=== PATIENT | female | born 1955 | race Hispanic/Latino ===

== ENCOUNTER 2017-01-07 14:55 | Emergency (ER) | payer MEDICAID ==
[2017-01-07 15:02] VITALS: TEMP 97.6
[2017-01-07] MEDS ORDERED: Albuterol-Ipratrop 3 mg / 0.5 (3 ml) UD INH STA ×3 (15:27→15:29)
[2017-01-07] MEDS ORDERED: Albuterol-Ipratrop 3 mg / 0.5 (3 ml) UD ONE (15:28)
--- NOTE | 2017-01-07 15:31 | ED PDOC ---
HPI: SOB/CHF/COPD Time Seen by Provider: 01/07/17 15:29 Chief Complaint (Nursing): Shortness Of Breath Chief Complaint (Provider): SOB History Per: Patient (61 Y/O FEMALE H/O COPD HERE WITH COMPLAINT OF SOB TODAY NOT RESOLVING DESPITE ATTEMPTED USE OF NEBULIZER. DENIES ANY COUGH/FEVERS/ CHILLS/URI.) Past Medical History Reviewed: Historical Data, Nursing Documentation, Vital Signs Vital Signs: Last Vital Signs Temp 97.6 F 01/07/17 15:02 Pulse 75 01/07/17 16:28 Resp 20 01/07/17 16:25 BP 151/74 H 01/07/17 16:25 Pulse Ox 99 01/07/17 17:16 - Medical History PMH: Anemia (iron deficiency), Anxiety, Arthritis, Asthma, Cardia Arrhythmia, COPD, Migraine, Osteoporosis, Rheumatoid Arthritis Denies: HTN, Chronic Kidney Disease - Surgical History Surgical History: - Family History Family History: States: No Known Family Hx - Home Medications Home Medications: Ambulatory Orders Medication Instructions Recorded Albuterol Sulfate [Albuterol 2 puff IH BID PRN 11/12/14 Sulfate Hfa] Alprazolam [Xanax] 0.5 mg PO Q12 11/12/14 Budesonide/Formoterol Fumarate 2 puff IH BID PRN 11/12/14 [Symbicort 160-4.5 Mcg Inhaler] Oxycodone Hydrochloride [Oxycodone] 15 mg PO BID PRN 11/12/14 Promethazine DM [Phenergan DM 10 ml PO QID 11/12/14 Syrup] Zolpidem Tartrate [Ambien] 5 mg PO HS PRN 11/12/14 predniSONE [predniSONE Tab] 5 mg PO DAILY #0 tab 11/14/14 Sulfamethoxazole/Trimethopri 1 tab PO BID #28 tab 06/25/15 [Bactrim Ds 800 mg-160 mg] Tobramycin 0.3% [Tobrex 0.3% Ophth 0.3 drop OU Q4H #1 bottle 11/14/15 Oint] Prednisone [Deltasone] 3 tab PO DAILY #12 tablet 01/07/17 - Allergies Allergies/Adverse Reactions: Allergies Allergy/AdvReac Type Severity Reaction Status Date / Time No Known Allergies Allergy Verified 11/14/15 08:34 Review of Systems ROS Statement: Except As Marked, All Systems Reviewed And Found Negative Respiratory: Positive for: Shortness of Breath Physical Exam - Reviewed Nursing Documentation Reviewed: Yes Vital Signs Reviewed: Yes - Physical Exam Appears: Positive for: Well, Non-toxic, No Acute Distress Head Exam: Positive for: ATRAUMATIC, NORMAL INSPECTION, NORMOCEPHALIC Skin: Positive for: Normal Color, Warm, DRY Eye Exam: Positive for: EOMI, Normal appearance, PERRL ENT: Positive for: Normal ENT Inspection Neck: Positive for: Normal, Painless ROM Cardiovascular/Chest: Positive for: Regular Rate, Rhythm Respiratory: Positive for: Normal Breath Sounds, Wheezing Gastrointestinal/Abdominal: Positive for: Normal Exam, Bowel Sounds, Soft Back: Positive for: Normal Inspection Extremity: Positive for: Normal ROM Neurologic/Psych: Positive for: Alert, Oriented - Laboratory Results Result Diagrams: 01/07/17 15:31 01/07/17 16:15 - ECG O2 Sat by Pulse Oximetry: 99 - Progress ED Course And Treament: DUONEB X 3 SOLUMEDROL 125 MG IV X 1 DOSE CXR: SAFETY PIN (EXTERNAL NOTED ON BLOUSE) OTHERWISE NO OBVIOUS PNEUMONIA/ETC. RE-EVALUATED AT 17:15PM. PATIENT APPEARS MUCH IMPROVED. O2 SAT AT 99% ON LUNG EXAM. D/W DR. MARTINS Disposition - Clinical Impression Clinical Impression: Asthma exacerbation - Patient ED Disposition Is Patient to be Admitted: No - Disposition Disposition: Routine/Home Disposition Time: 17:16 Condition: FAIR Prescriptions: Prednisone [Deltasone] 3 tab PO DAILY #12 tablet Instructions: Asthma (ED) Print Language: KOREAN
--- NOTE | 2017-01-07 16:10 | RAD ---
HISTORY: Shortness of breath COMPARISON: 11/12/2014. FINDINGS: LUNGS: The lungs are clear. PLEURA: No significant pleural effusion identified, no pneumothorax apparent. CARDIOVASCULAR: The heart is normal in size. OSSEOUS STRUCTURES: No significant abnormalities. VISUALIZED UPPER ABDOMEN: Normal. OTHER FINDINGS: None. IMPRESSION: No active pulmonary disease.
[2017-01-07 16:37] LABS: BASO # 0.1 K/uL (0.0-0.2); BASO % 0.6 % (0.0-2.0); EOS # 0.2 K/uL (0.0-0.7); EOS % 2.5 % (0.0-4.0); HEMOGLOBIN 13.1 g/dL (12.0-16.0); LYMPH % 33.4 % (20.0-40.0); MEAN CELL VOLUME 89.9 fl (81.0-99.0); MEAN CORPUSCULAR HGB CONC 33.3 g/dL (33.0-37.0); MEAN PLATELET VOLUME 10.3 fl (7.2-11.7); MONO # 0.6 K/uL (0.0-0.8); MONO % 6.2 % (0.0-10.0); NEUT # 5.2 K/uL (1.8-7.0); NEUT % 57.3 % (50.0-75.0); RBC 4.39 Mil/uL (3.80-5.20); RED CELL DISTRIBUTION WIDTH 13.7 % (11.5-14.5); WHITE BLOOD COUNT 9.1 K/uL (4.8-10.8)
[2017-01-07 16:50] LABS: BLOOD UREA NITROGEN 11 mg/dl (7-17); CALCIUM 9.5 mg/dL (8.4-10.2); GFR AFRICAN-AMERICAN > 60; GFR NON-AFRICAN AMERICAN > 60
[2017-01-07 17:27] VITALS: BP 168/81; PULSE 85; RESP 18; O2SAT 96
--- NOTE | 2017-01-08 14:53 | CARD ---
APPROVED REPORT EKG Measurement Heart [id number] ID [id number] <Conclusion> Normal sinus rhythm with sinus arrhythmia Normal ECG
== END 2017-01-07 17:26 | disposition home or self-care (01) ==
LOC: H.ER 14:55
DX: J45.901 Unspecified asthma with (acute) exacerbation (principal)

== ENCOUNTER 2017-09-20 03:01 | Emergency (ER) | payer MEDICAID ==
[2017-09-20 03:34] VITALS: BMI 35.2
[2017-09-20] MEDS ORDERED: Naproxen 500 MG TAB PO STA (03:34)
[2017-09-20 03:42] VITALS: BP 144/77; PULSE 92; RESP 16; TEMP 98.5; O2SAT 98
[2017-09-20] MEDS ORDERED: Naproxen 500 MG TAB PO ONE (04:00)
--- NOTE | 2017-09-20 04:05 | ED PDOC ---
Lower Extremity Pain/Injury Time Seen by Provider: 09/20/17 03:06 Chief Complaint (Nursing): Lower Extremity Problem/Injury Chief Complaint (Provider): LEft knee pain after fall History Per: Patient History/Exam Limitations: no limitations Onset/Duration Of Symptoms: Days Current Symptoms Are (Timing): Still Present Additional Complaint(s): PT states she tripped and fell which results in her twisting her left knee. Localized pain, lateral knee. No swelling. No medication for pain at home. Past Medical History Reviewed: Historical Data, Nursing Documentation, Vital Signs Vital Signs: Last Vital Signs Temp 98.5 F 09/20/17 03:37 Pulse 92 H 09/20/17 03:37 Resp 16 09/20/17 03:37 BP 144/77 09/20/17 03:37 Pulse Ox 98 09/20/17 03:37 - Medical History PMH: Anemia (iron deficiency), Anxiety, Arthritis, Asthma, Cardia Arrhythmia, COPD, Migraine, Osteoporosis, Rheumatoid Arthritis Denies: HTN, Chronic Kidney Disease - Surgical History Surgical History: - Family History Family History: States: No Known Family Hx - Living Arrangements Living Arrangements: With Family - Social History Current smoker - smoking cessation education provided: No - Home Medications Home Medications: Ambulatory Orders Medication Instructions Recorded Albuterol Sulfate [Albuterol 2 puff IH BID PRN 11/12/14 Sulfate Hfa] Alprazolam [Xanax] 0.5 mg PO Q12 11/12/14 Budesonide/Formoterol Fumarate 2 puff IH BID PRN 11/12/14 [Symbicort 160-4.5 Mcg Inhaler] Oxycodone Hydrochloride [Oxycodone] 15 mg PO BID PRN 11/12/14 Promethazine DM [Phenergan DM 10 ml PO QID 11/12/14 Syrup] Zolpidem Tartrate [Ambien] 5 mg PO HS PRN 11/12/14 predniSONE [predniSONE Tab] 5 mg PO DAILY #0 tab 11/14/14 Sulfamethoxazole/Trimethopri 1 tab PO BID #28 tab 06/25/15 [Bactrim Ds 800 mg-160 mg] Tobramycin 0.3% [Tobrex 0.3% Ophth 0.3 drop OU Q4H #1 bottle 11/14/15 Oint] Prednisone [Deltasone] 3 tab PO DAILY #12 tablet 01/07/17 - Allergies Allergies/Adverse Reactions: Allergies Allergy/AdvReac Type Severity Reaction Status Date / Time No Known Allergies Allergy Verified 09/20/17 03:37 Review of Systems ROS Statement: Except As Marked, All Systems Reviewed And Found Negative Constitutional: Negative for: Fever, Chills Musculoskeletal: Positive for: Leg Pain Physical Exam - Reviewed Nursing Documentation Reviewed: Yes Vital Signs Reviewed: Yes - Physical Exam Appears: Positive for: Well, Non-toxic, No Acute Distress Head Exam: Positive for: ATRAUMATIC, NORMAL INSPECTION, NORMOCEPHALIC Skin: Positive for: Normal Color, Warm, DRY Eye Exam: Positive for: Normal appearance ENT: Positive for: Normal ENT Inspection Neck: Positive for: Normal, Painless ROM Respiratory: Negative for: Accessory Muscle Use Back: Positive for: Normal Inspection Extremity: Positive for: Normal ROM, Swelling (minimal ). Negative for: Tenderness, Deformity Neurologic/Psych: Positive for: Alert, Oriented - ECG O2 Sat by Pulse Oximetry: 98 Pulse Ox Interpretation: Normal Medical Decision Making Medical Decision Making: No acute findings on x-ray of the knee . Disposition - Clinical Impression Clinical Impression: Knee pain - Disposition Referrals: Segun Santos MD [Primary Care Provider] - Disposition: Routine/Home Disposition Time: 04:11 Condition: GOOD Instructions: Knee Pain (DC) Forms: [employer] (Ugandan)
--- NOTE | 2017-09-20 08:34 | RAD ---
PROCEDURE: Left Knee Radiographs. HISTORY: Pain. COMPARISON: None. FINDINGS: BONES: No acute fracture or destructive bony lesion identified. JOINTS: No subluxation or dislocation identified. Limited joint space narrowing seen the medial femorotibial compartment compatible degenerative joint disease. There is ossification insertion of the quadriceps tendon at the upper patella. JOINT EFFUSION: Trace suprapatellar bursa effusion noted. OTHER FINDINGS: None. IMPRESSION: Limited degenerative changes. No acute fracture or dislocation identified. Trace suprasellar bursa effusion evident.
== END 2017-09-20 05:05 | disposition home or self-care (01) ==
LOC: H.ER 03:01
DX: M25.562 Pain in left knee (principal); F41.9 Anxiety disorder, unspecified; J44.9 Chronic obstructive pulmonary disease, unspecified; M06.9 Rheumatoid arthritis, unspecified; M81.0 Age-related osteoporosis without current pathological fracture

== ENCOUNTER 2018-01-10 16:54 | Inpatient (IN) | payer MEDICAID ==
[2018-01-10 16:54] VITALS: BMI 35.2
[2018-01-10] MEDS ORDERED: Albuterol-Ipratrop 3 mg / 0.5 (3 ml) UD INH STA ×2 (18:14→18:53)
--- NOTE | 2018-01-10 18:31 | ED PDOC ---
History of Present Illness History of Present Illness: 62yo female, sent to ER by Dr. Santos for evaluation as she has been coughing for the apst 6 days. Patient states she feels an itch in her throat that makes her want to cough. Patient was placed on a course of zithromax (started 01/06), cetirizine and promethazine DM without relief of symptoms. Otherwise, patient denies any fever, chills, sputum, chest pain, or shortness of breath. HPI: Influenza Time Seen by Provider: 01/10/18 18:08 Chief Complaint: Cough, Cold, Congestion Chief Complaint (Provider): Cough History Per: Patient Exam Limitations: no limitations Have you had recent travel within the past 21 days to any of: No Past Medical History Reviewed: Historical Data, Nursing Documentation, Vital Signs Vital Signs: Last Vital Signs Temp 98.4 F 01/10/18 17:12 Pulse 86 01/10/18 17:12 Resp 18 01/10/18 17:12 BP 156/76 H 01/10/18 17:12 Pulse Ox 100 01/10/18 17:12 - Medical History PMH: Anemia (iron deficiency), Anxiety, Arthritis, Asthma, Cardia Arrhythmia, COPD, Migraine, Osteoporosis, Rheumatoid Arthritis Denies: HTN, Chronic Kidney Disease - Surgical History Surgical History: - Family History Family History: States: No Known Family Hx - Living Arrangements Living Arrangements: With Family - Home Medications Home Medications: Ambulatory Orders Medication Instructions Recorded Albuterol Sulfate [Albuterol 2 puff IH BID PRN 11/12/14 Sulfate Hfa] Promethazine DM [Phenergan DM 10 ml PO QID 11/12/14 Syrup] Azithromycin [Zithromax] 500 mg PO DAILY 01/10/18 Levocetirizine Dihydrochloride 5 mg PO DAILY 01/10/18 [Xyzal] - Allergies Allergies/Adverse Reactions: Allergies Allergy/AdvReac Type Severity Reaction Status Date / Time No Known Allergies Allergy Verified 01/10/18 17:12 Review of Systems ROS Statement: Except As Marked, All Systems Reviewed And Found Negative Constitutional: Negative for: Fever, Chills Cardiovascular: Negative for: Chest Pain Respiratory: Positive for: Cough. Negative for: Shortness of Breath, Sputum Gastrointestinal: Negative for: Nausea, Vomiting, Diarrhea Physical Exam - Reviewed Nursing Documentation Reviewed: Yes Vital Signs Reviewed: Yes - Physical Exam Appears: Positive for: Non-toxic, No Acute Distress Head Exam: Positive for: ATRAUMATIC, NORMAL INSPECTION, NORMOCEPHALIC Skin: Positive for: Normal Color, Warm, Dry Eye Exam: Positive for: Normal appearance ENT: Positive for: Pharynx Is (clear), Other (uvula midline). Negative for: Pharyngeal Erythema, Tonsillar Exudate, Tonsillar Swelling Neck: Positive for: Normal, Supple, Trachea Midline Cardiovascular/Chest: Positive for: Regular Rate, Rhythm Respiratory: Positive for: Wheezing (bilateral expiratory wheeze). Negative for : Rales, Rhonchi, Respiratory Distress Gastrointestinal/Abdominal: Positive for: Normal Exam, Soft. Negative for: Tenderness Back: Positive for: Normal Inspection Extremity: Positive for: Normal ROM. Negative for: Pedal Edema Neurologic/Psych: Positive for: Alert, Oriented Medical Decision Making Medical Decision Making: Impression: Cough, asthma exacerbation Plan: -- Chest x-ray -- Duoneb 3ml INH -- Solumedrol 125mg IVP -- Labs -- EKG Accession No. : [id number] Patient Name / ID : CAMPOS CORONA / [id number] Exam Date : 01/10/2018 18:22:38 ( Approved ) Study Comment : Sex / Age : F / 62Y Creator : shaneka banda Dictator : Mack Rosado MD Patient Assessment Coordinator : Material Attendant : Mack Rosado MD Approver2 : Report Date : 01/10/2018 18:42:11 My Comment : HISTORY: Cough X 6 days COMPARISON: Chest radiograph dated 01/07/2017 TECHNIQUE: Chest PA and lateral FINDINGS: LUNGS: Left basilar atelectasis versus infiltrate. PLEURA: No significant pleural effusion identified. No pneumothorax apparent. CARDIOVASCULAR: Atherosclerotic aortic calcifications. Cardiomediastinal silhouette within normal limits. OSSEOUS STRUCTURES: Unchanged. VISUALIZED UPPER ABDOMEN: Normal. OTHER FINDINGS: None. IMPRESSION: Left basilar atelectasis versus infiltrate. Scribe Attestation: Documented by Anais Tyler, acting as a scribe for Brittanie Moreno MD. Provider Scribe Attestation: All medical record entries made by the Scribe were at my direction and personally dictated by me. I have reviewed the chart and agree that the record accurately reflects my personal performance of the history, physical exam, medical decision making, and the department course for this patient. I have also personally directed, reviewed, and agree with the discharge instructions and disposition. - Laboratory Results Result Diagrams: 01/12/18 06:25 01/12/18 06:25 - ECG O2 Sat by Pulse Oximetry: 100 Disposition - Clinical Impression Clinical Impression: Pneumonia, Asthma exacerbation - Patient ED Disposition Is Patient to be Admitted: Yes - Disposition Disposition Time: 19:08 Condition: STABLE - Pt Status Changed To: Hospital Disposition Of: Inpatient - Admit Certification Admit to Inpatient:: After my assessment, the patient will require hospitalization for at least two midnights. This is because of the severity of symptoms shown, intensity of services needed, and/or the medical risk in this patient being treated as an outpatient. - POA Present On Arrival: None
[2018-01-10] MEDS ORDERED: Albuterol-Ipratrop 3 mg / 0.5 (3 ml) UD ONE ×2 (18:43→20:33)
--- NOTE | 2018-01-10 18:52 | RAD ---
HISTORY: Cough X 6 days COMPARISON: Chest radiograph dated 01/07/2017 TECHNIQUE: Chest PA and lateral FINDINGS: LUNGS: Left basilar atelectasis versus infiltrate. PLEURA: No significant pleural effusion identified. No pneumothorax apparent. CARDIOVASCULAR: Atherosclerotic aortic calcifications. Cardiomediastinal silhouette within normal limits. OSSEOUS STRUCTURES: Unchanged. VISUALIZED UPPER ABDOMEN: Normal. OTHER FINDINGS: None. IMPRESSION: Left basilar atelectasis versus infiltrate.
[2018-01-10] MEDS ORDERED: levoFLOXacin 750 mg in D5W 150 ML BAG IVPB STA (18:53)
[2018-01-10 18:55] LABS: BASO % 0.5 % (0.0-2.0); EOS # 0.2 K/uL (0.0-0.7); EOS % 2.3 % (0.0-4.0); HEMOGLOBIN 13.5 g/dL (12.0-16.0); LYMPH # 3.5 K/uL (1.0-4.3); LYMPH % 32.6 % (20.0-40.0); MEAN CELL VOLUME 90.5 fl (81.0-99.0); MEAN CORPUSCULAR HEMOGLOBIN 30.2 pg (27.0-31.0); MEAN CORPUSCULAR HGB CONC 33.3 g/dL (33.0-37.0); MEAN PLATELET VOLUME 9.3 fl (7.2-11.7); MONO # 0.5 K/uL (0.0-0.8); MONO % 4.9 % (0.0-10.0); NEUT # 6.3 K/uL (1.8-7.0); NEUT % 59.7 % (50.0-75.0); RBC 4.48 Mil/uL (3.80-5.20); RED CELL DISTRIBUTION WIDTH 13.3 % (11.5-14.5); WHITE BLOOD COUNT 10.6 K/uL (4.8-10.8)
[2018-01-10 19:04] LABS: ALB/GLOB RATIO 1.3 (1.0-2.1); ALBUMIN 4.2 g/dL (3.5-5.0); ALT/SGPT 46 U/L (9-52); AST/SGOT 30 U/L (14-36); BLOOD UREA NITROGEN 11 mg/dl (7-17); CALCIUM 9.8 mg/dL (8.4-10.2); GFR NON-AFRICAN AMERICAN > 60
[2018-01-10] MEDS ORDERED: levoFLOXacin 750 mg in D5W 750 MG/150 ML BAG IVPB ONE (20:33)
[2018-01-11] MEDS ORDERED: Promethazine/Cod 6.25mg-10mg/5ml Syr UD PO PRN (00:10)
[2018-01-11] MEDS ORDERED: methylPREDNISolone 40 MG in Sodium Chloride 0.9% 50 ML IVPB SCH (04:00)
[2018-01-11] MEDS: Albuterol-Ipratrop 3 mg / 0.5 (3 ml) UD INH SCH ×6 (04:18→22:59)
[2018-01-11 04:24] LABS: ABG ALLEN TEST YES; ARTERIAL BLOOD GAS HEMOGLOBIN 14.2 g/dL (11.7-17.4); ARTERIAL BLOOD GAS O2 CAPACITY 19.3 mL/dL (16-24); ARTERIAL BLOOD GAS O2 CONTENT 18.6 ML/dL (15-23); ARTERIAL BLOOD GAS O2 SAT 96.4 % (95-98); ARTERIAL BLOOD GAS PCO2 34 mm/Hg (35-45); ARTERIAL BLOOD GAS PH 7.45 (7.35-7.45); ARTERIAL BLOOD GAS PO2 69 mm/Hg (80-100); ARTERIAL BLOOD GAS TCO2 24.6 mmol/L (22-28)
[2018-01-11] MEDS: Piperacillin/Tazobact 3.375 GM in Sodium Chloride 0.9% 100 ML IVPB SCH ×4 (04:35→21:30)
[2018-01-11] MEDS: MethylPREDNISolone 40 mg Vial IVP SCH ×4 (04:35→21:30)
[2018-01-11 06:22] LABS: HEMOGLOBIN 13.3 g/dL (12.0-16.0); MEAN CORPUSCULAR HEMOGLOBIN 30.3 pg (27.0-31.0); MEAN CORPUSCULAR HGB CONC 34.5 g/dL (33.0-37.0); RBC 4.39 Mil/uL (3.80-5.20); RED CELL DISTRIBUTION WIDTH 13.3 % (11.5-14.5)
[2018-01-11 06:43] LABS: ALB/GLOB RATIO 1.2 (1.0-2.1); ALBUMIN 4.1 g/dL (3.5-5.0); ALT/SGPT 36 U/L (9-52); AST/SGOT 27 U/L (14-36); BLOOD UREA NITROGEN 14 mg/dl (7-17); CALCIUM 9.8 mg/dL (8.4-10.2); GFR NON-AFRICAN AMERICAN > 60; HDL CHOLESTEROL 42 MG/DL (30-70)
[2018-01-11 06:49] LABS: LDL CHOLESTEROL 70 mg/dL (0-129)
[2018-01-11] MEDS ORDERED: levoFLOXacin 750 mg in D5W 150 ML BAG IVPB SCH (09:00)
[2018-01-11 09:07] LABS: SQUAMOUS EPITHIAL 1 /hpf (0-5); URINE BILIRUBIN NEGATIVE (NEGATIVE); URINE BLOOD NEGATIVE (NEGATIVE); URINE CLARITY CLEAR (Clear); URINE COLOR YELLOW (YELLOW); URINE GLUCOSE (UA) >=500 mg/dL (Normal); URINE LEUKOCYTE ESTERASE NEG Leu/uL (Negative); URINE PROTEIN NEGATIVE (NEGATIVE); URINE UROBILINOGEN 0.2-1.0 mg/dL (0.2-1.0)
[2018-01-11] MEDS: levoFLOXacin 750 mg in D5W 750 MG/150 ML BAG IVPB SCH (09:10)
[2018-01-11] MEDS: Pantoprazole 40 mg EC Tab PO SCH (13:11)
--- NOTE | 2018-01-11 14:27 | CT ---
Date of service: 01/11/2018 PROCEDURE: CT Chest without contrast HISTORY: Pneumonia/asthma exacerbation COMPARISON: None. TECHNIQUE: Contiguous axial images were obtained through the chest without intravenous contrast enhancement. Sagittal and coronal reconstructions were performed. Radiation dose (DLP): 396.2 mGy-cm. This CT exam was performed using one or more of the following dose reduction techniques: Automated exposure control, adjustment of the mA and/or kV according to patient size, and/or use of iterative reconstruction technique. FINDINGS: LUNGS: Medial right upper lobe and mild bilateral lower lobe atelectasis. Focal consolidation. Visualized airway clear. MEDIASTINUM: Unremarkable thoracic aorta. No aneurysm. Normal sized heart. Main pulmonary artery unremarkable. No vascular congestion. No lymphadenopathy. PLEURA: No pleural fluid. No pneumothorax. BONES: No fracture. No destructive lesion. UPPER ABDOMEN: Grossly unremarkable. OTHER FINDINGS: None. IMPRESSION: Medial right upper lobe subsegmental and mild bilateral lower lobe atelectasis. No focal consolidation or pleural effusion.
--- NOTE | 2018-01-11 15:31 | CP.PCM.HP ---
History of Present Illness - History of Present Illness History of Present Illness: CC: Respiratory Distress. 62 y/o F, Hx COPD, Asthma, [facility] persistent cough, non productive associated to SOB, chest congestion for 6 day [employer], Pt using Zithromax, Certizine, Prometazine DM with no relief. Worsening symptoms: VILLAR. Aggravated factor: movements/walking. Pt denied: Fever, chills, n/v/d, abdominal pain, urinary symptoms, CP, palpitations, syncope, dizziness, sick contact, recent travel out of [facility]. CXR: L basilar atelectasis vs infiltrate. Chest CT: Medial RUL and mid b/l lower lobe atelectasis. Present on Admission - Present on Admission Any Indicators Present on Admission: No Review of Systems - Constitutional Constitutional: Other (negative) - EENT Eyes: Requires Corrective Lenses Ears: Other (negative) Nose/Mouth/Throat: Other (negative) - Cardiovascular Cardiovascular: Other (negative) - Respiratory Respiratory: Cough, Dyspnea, Wheezing, Chest Congestion - Gastrointestinal Gastrointestinal: Other (negative) - Musculoskeletal Musculoskeletal: Arthralgias - Integumentary Integumentary: Other (negative) - Neurological Neurological: Other (negative) - Psychiatric Psychiatric: Other (negative) - Endocrine Endocrine: Other (negative) - Hematologic/Lymphatic Hematologic: Other (negative) Past Patient History - Infectious Disease Hx of Infectious Diseases: None - Past Medical History & Family History Past Medical History?: Yes Pertinent Family History: Asthma, Ca, DM, HTN, KD, - Past Social History Smoking Status: Heavy Smoker > 10 Cigarettes Daily Alcohol: None Drugs: Denies Home Situation {Lives}: With Family - CARDIAC Hx Cardiac Disorders: Yes Hx Cardia Arrhythmia: Yes Hx Hypertension: No - PULMONARY Hx Respiratory Disorders: Yes Hx Asthma: Yes Hx Chronic Obstructive Pulmonary Disease (COPD): Yes - NEUROLOGICAL Hx Neurological Disorder: Yes Hx Migraine: Yes - HEENT Hx HEENT Problems: No - RENAL Hx Chronic Kidney Disease: No - ENDOCRINE/METABOLIC Hx Endocrine Disorders: No - HEMATOLOGICAL/ONCOLOGICAL Hx Blood Disorders: Yes Hx Anemia: Yes (iron deficiency) - INTEGUMENTARY Hx Dermatological Problems: No - MUSCULOSKELETAL/RHEUMATOLOGICAL Hx Musculoskeletal Disorders: Yes Hx Falls: Yes - GASTROINTESTINAL Hx Gastrointestinal Disorders: Yes Hx Colitis: Yes Hx Hemorrhoids: Yes (Internal) - GENITOURINARY/GYNECOLOGICAL Hx Genitourinary Disorders: Yes Other/Comment: Microscopic Hematuria - PSYCHIATRIC Hx Psychophysiologic Disorder: No Hx Substance Use: No - SURGICAL HISTORY Hx Surgeries: Yes Hx Hysterectomy: Yes - ANESTHESIA Hx Anesthesia: Yes Hx Anesthesia Reactions: No Hx Malignant Hyperthermia: No Meds Allergies/Adverse Reactions: Allergies Allergy/AdvReac Type Severity Reaction Status Date / Time No Known Allergies Allergy Verified 01/10/18 17:12 Physical Exam - Constitutional Appears: No Acute Distress - Head Exam Head Exam: NORMAL INSPECTION - Eye Exam Eye Exam: PERRL - ENT Exam ENT Exam: Mucous Membranes Moist - Neck Exam Neck exam: Positive for: Normal Inspection - Respiratory Exam Respiratory Exam: Decreased Breath Sounds (at bases), Rhonchi (scattered), Wheezes - Cardiovascular Exam Cardiovascular Exam: REGULAR RHYTHM - GI/Abdominal Exam GI & Abdominal Exam: Normal Bowel Sounds, Soft - Extremities Exam Extremities exam: Positive for: normal inspection - Back Exam Back exam: NORMAL INSPECTION - Neurological Exam Neurological exam: Alert, Oriented x3 Additional comments: No motor/sensory deficit. - Psychiatric Exam Psychiatric exam: Normal Mood - Skin Skin Exam: Warm Results - Vital Signs Recent Vital Signs: Last Vital Signs Temp 98 F 01/11/18 08:17 Pulse 87 01/11/18 08:17 Resp 20 01/11/18 08:17 BP 159/79 H 01/11/18 08:17 Pulse Ox 95 01/11/18 08:17 reviewed J.Mike - Labs Result Diagrams: 01/11/18 06:05 01/11/18 06:05 Labs: Laboratory Results - last 24 hr 01/10/18 01/10/18 01/11/18 18:43 18:43 04:20 WBC 10.6 RBC 4.48 Hgb 13.5 Hct 40.6 MCV 90.5 MCH 30.2 MCHC 33.3 RDW 13.3 Plt Count 231 MPV 9.3 Neut % (Auto) 59.7 Lymph % (Auto) 32.6 [place] % (Auto) 4.9 Eos % (Auto) 2.3 Baso % (Auto) 0.5 Neut # (Auto) 6.3 Lymph # (Auto) 3.5 [place] # (Auto) 0.5 Eos # (Auto) 0.2 Baso # (Auto) 0.0 pCO2 34 L pO2 69 L HCO3 25.0 ABG pH 7.45 ABG Total CO2 24.6 ABG O2 Saturation 96.4 ABG O2 Content 18.6 ABG Base Excess 0.2 ABG Hemoglobin 14.2 ABG Carboxyhemoglobin 1.7 H POC ABG HHb (Measured) 3.5 ABG Methemoglobin 1.5 ABG O2 Capacity 19.3 Sami Test Yes A-a O2 Difference 38.0 Hgb O2 Saturation 93.3 L FiO2 21.0 Sodium 140 Potassium 3.7 Chloride 104 Carbon Dioxide 25 Anion Gap 15 BUN 11 Creatinine 0.5 L Est GFR ( Amer) > 60 Est GFR (Non-Af Amer) > 60 Random Glucose 185 H Calcium 9.8 Total Bilirubin 0.3 AST 30 ALT 46 Alkaline Phosphatase 72 Total Protein 7.4 Albumin 4.2 Globulin 3.1 Albumin/Globulin Ratio 1.3 Triglycerides Cholesterol LDL Cholesterol Direct HDL Cholesterol TSH 3rd Generation Urine Color Urine Clarity Urine pH Ur Specific [place] Urine Protein Urine Glucose (UA) Urine Ketones Urine Blood Urine Nitrate Urine Bilirubin Urine Urobilinogen Ur Leukocyte Esterase Urine RBC (Auto) Urine Microscopic WBC Ur Squamous Epith Cells 01/11/18 01/11/18 01/11/18 06:05 06:05 09:00 WBC 10.0 RBC 4.39 Hgb 13.3 Hct 38.6 MCV 88.0 D MCH 30.3 MCHC 34.5 RDW 13.3 Plt Count 237 MPV Neut % (Auto) Lymph % (Auto) [place] % (Auto) Eos % (Auto) Baso % (Auto) Neut # (Auto) Lymph # (Auto) [place] # (Auto) Eos # (Auto) Baso # (Auto) pCO2 pO2 HCO3 ABG pH ABG Total CO2 ABG O2 Saturation ABG O2 Content ABG Base Excess ABG Hemoglobin ABG Carboxyhemoglobin POC ABG HHb (Measured) ABG Methemoglobin ABG O2 Capacity Sami Test A-a O2 Difference Hgb O2 Saturation FiO2 Sodium 140 Potassium 4.1 Chloride 105 Carbon Dioxide 23 Anion Gap 16 BUN 14 Creatinine 0.6 L Est GFR ( Amer) > 60 Est GFR (Non-Af Amer) > 60 Random Glucose 261 H Calcium 9.8 Total Bilirubin 0.3 AST 27 ALT 36 Alkaline Phosphatase 71 Total Protein 7.5 Albumin 4.1 Globulin 3.4 Albumin/Globulin Ratio 1.2 Triglycerides 59 D Cholesterol 143 LDL Cholesterol Direct 70 HDL Cholesterol 42 TSH 3rd Generation 0.57 Urine Color Yellow Urine Clarity Clear Urine pH 6.0 Ur Specific [place] 1.026 Urine Protein Negative Urine Glucose (UA) >=500 Urine Ketones Trace Urine Blood Negative Urine Nitrate Negative Urine Bilirubin Negative Urine Urobilinogen 0.2-1.0 Ur Leukocyte Esterase Neg Urine RBC (Auto) 2 Urine Microscopic WBC 1 Ur Squamous Epith Cells 1 reviewed J.P. - Imaging and Cardiology Chest x-ray Status: Report reviewed by me (Alexandra) CT scan - chest Status: Report reviewed by me (Alexandra) Assessment & Plan (1) COPD exacerbation Status: Acute Priority: High (2) HTN (hypertension) Status: Acute Priority: High - Assessment and Plan (Free Text) Plan: F/U EKG, NC 2 L/M, Blood C-S, U C-S, Throat C-S, continue Zosyn, Levaquin, Duoneb, Solu-Medrol and rest of Tx. - Date & Time Date: 01/11/18 Time: 10:00
[2018-01-12] MEDS: Piperacillin/Tazobact 3.375 GM in Sodium Chloride 0.9% 100 ML IVPB SCH ×2 (03:52→10:06)
[2018-01-12] MEDS: MethylPREDNISolone 40 mg Vial IVP SCH ×3 (03:52→16:48)
[2018-01-12] MEDS: Albuterol-Ipratrop 3 mg / 0.5 (3 ml) UD INH SCH ×6 (04:51→23:00)
[2018-01-12 06:53] LABS: HEMOGLOBIN 12.9 g/dL (12.0-16.0); MEAN CELL VOLUME 89.6 fl (81.0-99.0); MEAN CORPUSCULAR HGB CONC 33.5 g/dL (33.0-37.0); RBC 4.3 Mil/uL (3.80-5.20); RED CELL DISTRIBUTION WIDTH 13.4 % (11.5-14.5); WHITE BLOOD COUNT 20.7 K/uL (4.8-10.8)
[2018-01-12 07:16] LABS: BLOOD UREA NITROGEN 15 mg/dl (7-17); CALCIUM 9.8 mg/dL (8.4-10.2); GFR NON-AFRICAN AMERICAN > 60
[2018-01-12 08:04] VITALS: RESP 20
[2018-01-12] MEDS: Pantoprazole 40 mg EC Tab PO SCH (10:06)
[2018-01-12] MEDS: Enoxaparin 40 mg Syringe SC SCH (10:07)
[2018-01-12] MEDS: levoFLOXacin 750 mg in D5W 750 MG/150 ML BAG IVPB SCH (11:05)
--- NOTE | 2018-01-12 18:03 | CP.PCM.PN ---
Subjective - Date & Time of Evaluation Date of Evaluation: 01/12/18 Time of Evaluation: 13:25 - Subjective Subjective: F/U COPD Exacerbation Objective - Vital Signs/Intake and Output Vital Signs (last 24 hours): Temp Pulse Resp BP Pulse Ox 98.2 F 87 20 157/71 H 97 01/12/18 16:30 01/12/18 16:30 01/12/18 16:30 01/12/18 16:30 01/12/18 16:30 - Medications Medications: Current Medications Albuterol/Ipratropium (Duoneb 3 Mg/0.5 Mg (3 Ml) Ud) 3 ml INH RQ4 [facility], [facility]–1983 Last Admin: 01/12/18 15:59 Dose: 3 ml Enalapril Maleate (Vasotec) 5 mg PO DAILY [facility], [facility]1983 Last Admin: 01/12/18 10:08 Dose: 5 mg Enoxaparin Sodium (Lovenox) 40 mg SC DAILY [facility], [facility]–1983 PRN Reason: Protocol Last Admin: 01/12/18 10:07 Dose: 40 mg Levofloxacin/Dextrose (Levaquin 750mg) 750 mg in 150 mls @ 100 mls/hr IVPB DAILY [facility], 1928–1983 Last Admin: 01/12/18 11:05 Dose: 100 mls/hr Methylprednisolone (Solu-Medrol) 30 mg IVP Q8 [facility]1983 Last Admin: 01/12/18 16:48 Dose: 30 mg Pantoprazole Sodium (Protonix Ec Tab) 40 mg PO DAILY [facility] Last Admin: 01/12/18 10:06 Dose: 40 mg Promethazine HCl/Codeine (Phenergan/Codeine Oral Syrup) 5 ml PO Q4 PRN PRN Reason: Cough Last Admin: 01/11/18 09:18 Dose: 5 ml - Labs Labs: 01/12/18 06:25 01/12/18 06:25 - Constitutional Appears: No Acute Distress - Head Exam Head Exam: NORMAL INSPECTION - Eye Exam Eye Exam: PERRL - ENT Exam ENT Exam: Mucous Membranes Moist - Neck Exam Neck Exam: Normal Inspection - Respiratory Exam Respiratory Exam: Decreased Breath Sounds (at bases), Rhonchi (scattered) - Cardiovascular Exam Cardiovascular Exam: REGULAR RHYTHM - GI/Abdominal Exam GI & Abdominal Exam: Soft, Normal Bowel Sounds - Extremities Exam Extremities Exam: Normal Inspection - Back Exam Back Exam: NORMAL INSPECTION - Neurological Exam Neurological Exam: Alert, Oriented x3. absent: Motor Sensory Deficit - Psychiatric Exam Psychiatric exam: Normal Mood - Skin Skin Exam: Warm Assessment and Plan (1) COPD exacerbation Status: Acute (2) HTN (hypertension) Status: Acute
[2018-01-13] MEDS: MethylPREDNISolone 40 mg Vial IVP SCH ×2 (00:17→09:00)
[2018-01-13] MEDS: Albuterol-Ipratrop 3 mg / 0.5 (3 ml) UD INH SCH ×3 (05:06→11:47)
[2018-01-13 06:17] LABS: HEMOGLOBIN 13.3 g/dL (12.0-16.0); MEAN CELL VOLUME 88.3 fl (81.0-99.0); MEAN CORPUSCULAR HEMOGLOBIN 30.4 pg (27.0-31.0); MEAN CORPUSCULAR HGB CONC 34.5 g/dL (33.0-37.0); RBC 4.39 Mil/uL (3.80-5.20); RED CELL DISTRIBUTION WIDTH 13.1 % (11.5-14.5); WHITE BLOOD COUNT 15.8 K/uL (4.8-10.8)
[2018-01-13 06:31] LABS: BLOOD UREA NITROGEN 15 mg/dl (7-17); CALCIUM 9.8 mg/dL (8.4-10.2); GFR NON-AFRICAN AMERICAN > 60
[2018-01-13 08:53] VITALS: BP 155/78; PULSE 92; TEMP 97.9; O2SAT 96
[2018-01-13] MEDS: levoFLOXacin 750 mg in D5W 750 MG/150 ML BAG IVPB SCH (08:58)
[2018-01-13] MEDS: Enoxaparin 40 mg Syringe SC SCH (08:59)
[2018-01-13] MEDS: Pantoprazole 40 mg EC Tab PO SCH (08:59)
--- NOTE | 2018-01-13 16:40 | CARD ---
APPROVED REPORT Date of service: 01/10/2018 EKG Measurement Heart [id number] <Conclusion> Normal sinus rhythm Normal ECG
--- NOTE | 2018-01-13 19:46 | CP.PCM.DIS ---
Provider - Provider Date of Admission: 01/10/18 19:08 Attending physician: Segun Santos MD Time Spent in preparation of Discharge (in minutes): 35 Diagnosis - Discharge Diagnosis (1) COPD exacerbation Status: Acute Priority: High (2) HTN (hypertension) Status: Acute Priority: High Hospital Course - Lab Results Lab Results: Micro Results 01/10/18 18:55 Blood-Venous Blood Culture - Preliminary NO GROWTH AFTER 3 DAYS 01/10/18 18:43 Blood-Venous Blood Culture - Preliminary NO GROWTH AFTER 3 DAYS 01/11/18 09:13 Throat Group A Strep Throat Culture - Final NO BETA STREP GROUP A ISOLATED. 01/11/18 09:00 Urine Urine Culture - Final No Growth (<1,000 CFU/ML) Most Recent Lab Values WBC 15.8 K/uL (4.8-10.8) H 01/13/18 05:45 RBC 4.39 Mil/uL (3.80-5.20) 01/13/18 05:45 Hgb 13.3 g/dL (12.0-16.0) 01/13/18 05:45 Hct 38.7 % (34.0-47.0) 01/13/18 05:45 MCV 88.3 fl (81.0-99.0) 01/13/18 05:45 MCH 30.4 pg (27.0-31.0) 01/13/18 05:45 MCHC 34.5 g/dL (33.0-37.0) 01/13/18 05:45 RDW 13.1 % (11.5-14.5) 01/13/18 05:45 Plt Count 248 K/uL (130-400) 01/13/18 05:45 MPV 9.3 fl (7.2-11.7) 01/10/18 18:43 Neut % (Auto) 59.7 % (50.0-75.0) 01/10/18 18:43 Lymph % (Auto) 32.6 % (20.0-40.0) 01/10/18 18:43 [place] % (Auto) 4.9 % (0.0-10.0) 01/10/18 18:43 Eos % (Auto) 2.3 % (0.0-4.0) 01/10/18 18:43 Baso % (Auto) 0.5 % (0.0-2.0) 01/10/18 18:43 Neut # (Auto) 6.3 K/uL (1.8-7.0) 01/10/18 18:43 Lymph # (Auto) 3.5 K/uL (1.0-4.3) 01/10/18 18:43 [place] # (Auto) 0.5 K/uL (0.0-0.8) 01/10/18 18:43 Eos # (Auto) 0.2 K/uL (0.0-0.7) 01/10/18 18:43 Baso # (Auto) 0.0 K/uL (0.0-0.2) 01/10/18 18:43 pCO2 34 mm/Hg (35-45) L 01/11/18 04:20 pO2 69 mm/Hg (80-100) L 01/11/18 04:20 HCO3 25.0 mmol/L (21-28) 01/11/18 04:20 ABG pH 7.45 (7.35-7.45) 01/11/18 04:20 ABG Total CO2 24.6 mmol/L (22-28) 01/11/18 04:20 ABG O2 Saturation 96.4 % (95-98) 01/11/18 04:20 ABG O2 Content 18.6 ML/dL (15-23) 01/11/18 04:20 ABG Base Excess 0.2 mmol/L (-2.0-3.0) 01/11/18 04:20 ABG Hemoglobin 14.2 g/dL (11.7-17.4) 01/11/18 04:20 ABG Carboxyhemoglobin 1.7 % (0.5-1.5) H 01/11/18 04:20 POC ABG HHb (Measured) 3.5 % (0.0-5.0) 01/11/18 04:20 ABG Methemoglobin 1.5 % (0.0-3.0) 01/11/18 04:20 ABG O2 Capacity 19.3 mL/dL (16-24) 01/11/18 04:20 Sami Test Yes 01/11/18 04:20 A-a O2 Difference 38.0 mm/Hg 01/11/18 04:20 Hgb O2 Saturation 93.3 % (95.0-98.0) L 01/11/18 04:20 FiO2 21.0 % 01/11/18 04:20 Sodium 139 mmol/l (132-148) 01/13/18 05:45 Potassium 4.3 MMOL/L (3.6-5.0) 01/13/18 05:45 Chloride 102 mmol/L (98-107) 01/13/18 05:45 Carbon Dioxide 25 mmol/L (22-30) 01/13/18 05:45 Anion Gap 16 (10-20) 01/13/18 05:45 BUN 15 mg/dl (7-17) 01/13/18 05:45 Creatinine 0.5 mg/dl (0.7-1.2) L 01/13/18 05:45 Est GFR ( Amer) > 60 01/13/18 05:45 Est GFR (Non-Af Amer) > 60 01/13/18 05:45 POC Glucose (mg/dL) 277 mg/dL (65-110) H 01/13/18 11:57 Random Glucose 271 mg/dL (65-105) H 01/13/18 05:45 Calcium 9.8 mg/dL (8.4-10.2) 01/13/18 05:45 Total Bilirubin 0.3 mg/dl (0.2-1.3) 01/11/18 06:05 AST 27 U/L (14-36) 01/11/18 06:05 ALT 36 U/L (9-52) 01/11/18 06:05 Alkaline Phosphatase 71 U/L (38-126) 01/11/18 06:05 C-Reactive Protein 29.00 mg/L (0.0-9.9) H 01/11/18 06:05 Total Protein 7.5 G/DL (6.3-8.2) 01/11/18 06:05 Albumin 4.1 g/dL (3.5-5.0) 01/11/18 06:05 Globulin 3.4 gm/dL (2.2-3.9) 01/11/18 06:05 Albumin/Globulin Ratio 1.2 (1.0-2.1) 01/11/18 06:05 Triglycerides 59 mg/DL (0-149) D 01/11/18 06:05 Cholesterol 143 mg/dL (0-199) 01/11/18 06:05 LDL Cholesterol Direct 70 mg/dL (0-129) 01/11/18 06:05 HDL Cholesterol 42 MG/DL (30-70) 01/11/18 06:05 TSH 3rd Generation 0.57 mIU/ML (0.46-4.68) 01/11/18 06:05 Urine Color Yellow (YELLOW) 01/11/18 09:00 Urine Clarity Clear (Clear) 01/11/18 09:00 Urine pH 6.0 (5.0-8.0) 01/11/18 09:00 Ur Specific [place] 1.026 (1.003-1.030) 01/11/18 09:00 Urine Protein Negative mg/dL (NEGATIVE) 01/11/18 09:00 Urine Glucose (UA) >=500 mg/dL (Normal) 01/11/18 09:00 Urine Ketones Trace mg/dL (NEGATIVE) 01/11/18 09:00 Urine Blood Negative (NEGATIVE) 01/11/18 09:00 Urine Nitrate Negative (NEGATIVE) 01/11/18 09:00 Urine Bilirubin Negative (NEGATIVE) 01/11/18 09:00 Urine Urobilinogen 0.2-1.0 mg/dL (0.2-1.0) 01/11/18 09:00 Ur Leukocyte Esterase Neg [place]/uL (Negative) 01/11/18 09:00 Urine RBC (Auto) 2 /hpf (0-3) 01/11/18 09:00 Urine Microscopic WBC 1 /hpf (0-5) 01/11/18 09:00 Ur Squamous Epith Cells 1 /hpf (0-5) 01/11/18 09:00 Ur L.pneumophila Ag Negative (NEGATIVE) 01/11/18 07:00 Mycoplasma pneumon IgG 3.51 (<=0.90) H 01/11/18 06:05 Mycoplasma pneumon IgM 3 U/mL (<770) 01/11/18 06:05 - Date & Time of H&P Date of H&P: 01/11/18 Time of H&P: 10:00 Discharge Exam - Head Exam Head Exam: NORMAL INSPECTION - Eye Exam Eye Exam: PERRL - ENT Exam ENT Exam: Mucous Membranes Moist - Neck Exam Neck exam: Normal Inspection - Respiratory Exam Respiratory Exam: Decreased Breath Sounds (at bases), Rhonchi - Cardiovascular Exam Cardiovascular Exam: REGULAR RHYTHM - GI/Abdominal Exam GI & Abdominal Exam: Normal Bowel Sounds, Soft - Extremities Exam Extremities exam: normal inspection - Back Exam Back exam: NORMAL INSPECTION - Neurological Exam Neurological exam: Alert, Oriented x3 Additional comments: No motor sensory deficit. - Psychiatric Exam Psychiatric exam: Normal Mood - Skin Skin Exam: Warm Discharge Plan - Discharge Medications Prescriptions: Levofloxacin [Levaquin] 750 mg PO DAILY #3 tablet Pantoprazole [Protonix EC Tab] 40 mg PO DAILY #30 ect Prednisone [Maxi] 30 mg PO DAILY #42 tablet. - Follow Up Plan Condition: STABLE Disposition: HOME/ ROUTINE Patient education suggested?: Yes Instructions: Asthma, Adult (DC) Additional Instructions: follow up appointment with Dr Santos Referrals: Segun Santos MD [Family Provider] -
--- NOTE | 2018-01-26 10:09 | PQF ---
PROVIDER RESPONSE TEXT: No Pneumonia REVIEWER QUERY TEXT: Pneumonia Specificity Pneumonia is documented in the Medical Record. Please specify the type of pneumonia and the causative organism (includes probable or suspected) Such as: Type: -- Aspiration pneumonia (please also specify the aspirate) - [place] (please specify cause) - Please indicate if the aspiration is postprocedure -- Bacterial (please document suspected or probable organism) -- Bronchopneumonia (please document suspected or probable organism) -- Interstitial pneumonia -- Organizing pneumonia / BOOP -- Pneumonia with influenza, tere flu, or H1N1 flu -- RSV -- Tuberculosis, pulmonary -- Viral -- Other, please specify The patient's Clinical Indicators include: ED Physician Documentation Report documented pneumonia and asthma exacerbation Query created by: Smitha Bilss on 01/17/2018 9:21 AM PROVIDER RESPONSE TEXT: Unable to determine REVIEWER QUERY TEXT: Asthma Specificity and Type Asthma is documented in the Medical Record. Please specify the type and severity of asthma and indic ate if this is associated with exacerbation or status asthmaticus. Such as: -- Mild intermittent -- Mild persistent -- Moderate persistent -- Severe persistent -- Exercise induced bronchospasm -- Cough variant asthma -- Other, please specify The patient's Clinical Indicators include: ER Physician Documentation Report documented asthma exacerbation. Query created by: Smitha Bliss on 01/17/2018 9:22 AM Electronically signed by: Segun Santos MD 01/26/2018 10:06 AM
== END 2018-01-13 14:04 | disposition home or self-care (01) | DRG 88 ==
LOC: H.ER 16:54 → OBSVTOIN 19:08 → H.ERHOLD 19:08 → H.MEDSURG1 23:38
PROVIDERS: ADMIT Internal Medicine Pulmonary Disease; ATTEND Internal Medicine Pulmonary Disease
DX: J44.1 Chronic obstructive pulmonary disease with (acute) exacerbation (principal); I10 Essential (primary) hypertension; G43.909 Migraine, unspecified, not intractable, without status migrainosus; M81.0 Age-related osteoporosis without current pathological fracture; M06.9 Rheumatoid arthritis, unspecified; F17.210 Nicotine dependence, cigarettes, uncomplicated; F41.9 Anxiety disorder, unspecified; M19.90 Unspecified osteoarthritis, unspecified site; J45.909 Unspecified asthma, uncomplicated